=== PATIENT | female | born 2000 | race Caucasian/White ===

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

== ENCOUNTER 2020-05-24 16:27 | Inpatient (IN) | payer OTHER ==
[~2020-05-24] VITALS: Ht 167.6 cm; Wt 60.4 kg
[2020-05-24] MEDS ORDERED: NS 1,000 ML IV ONE (19:15)
[2020-05-24] MEDS ORDERED: ONDANSETRON 4MG/2ML VIAL IV ONE (19:15)
[2020-05-24 19:59] LABS: BASO # 0.1 10^3/uL (0.0-0.2); BASO % 0.5 % (0.0-1.0); EOS # 1.6 10^3/uL (0.0-0.5); EOS % 13.6 % (0.0-3.0); HEMATOCRIT 33.7 % (36.0-47.0); HEMOGLOBIN 10.6 g/dl (12.0-15.5); MEAN CORPUSCULAR HEMOGLOBIN 25.9 pg (27.0-33.0); MEAN CORPUSCULAR HGB CONC 31.5 g/dl (32.0-36.5); MEAN CORPUSCULAR VOLUME 82.4 fl (80.0-96.0); MONO # 1.3 10^3/uL (0.0-0.8); MONO % 10.7 % (2.0-8.0); NEUTROPHILS # 5.9 10^3/uL (1.5-8.5); NEUTROPHILS % 49.7 % (36.0-66.0); PLATELET COUNT, AUTOMATED 514 10^3/uL (150-450); RED BLOOD COUNT 4.09 10^6/uL (4.00-5.40); WHITE BLOOD COUNT 11.9 10^3/uL (4.0-10.0)
[2020-05-24 20:24] LABS: ALBUMIN 2.9 GM/DL (3.2-5.2); BILIRUBIN,DIRECT 0.1 MG/DL (0.0-0.2); BILIRUBIN,TOTAL 0.3 MG/DL (0.2-1.0); TOTAL PROTEIN 6.9 GM/DL (6.4-8.2)
[2020-05-24] MEDS ORDERED: ISOVUE-370 76% 100ML VIAL As Ordered ONE (20:28)
[2020-05-24] MEDS ORDERED: PANTOPRAZOLE 40MG VIAL (C9113 PER 1) IV ONE (20:35)
[2020-05-24] MEDS: DOCUSATE SODIUM 100MG CAPSULE PO SCH ×2 (21:00→23:48)
--- NOTE | 2020-05-24 21:46 | REPVR ---
PROCEDURE INFORMATION: Exam: CT Abdomen And Pelvis With Contrast Exam date and time: 05/24/2020 8:36 PM Age: 19 years old Clinical indication: Abdominal pain; Localized; Left lower quadrant (llq); Additional info: HX colitis /llq pain TECHNIQUE: Imaging protocol: Computed tomography of the abdomen and pelvis with contrast. Radiation optimization: All CT scans at this facility use at least one of these dose optimization techniques: automated exposure control; mA and/or kV adjustment per patient size (includes targeted exams where dose is matched to clinical indication); or iterative reconstruction. Contrast material: ISOVUE 370; Contrast volume: 100 ml; Contrast route: INTRAVENOUS (IV); COMPARISON: No relevant prior studies available. FINDINGS: Lungs: The lung bases are unremarkable. Liver: There are no focal liver lesions. Gallbladder and bile ducts: The gallbladder is unremarkable. Pancreas: The pancreas is normal. Spleen: The spleen is unremarkable. Adrenal glands: The adrenal glands are unremarkable. Kidneys and ureters: The kidneys are unremarkable. Stomach and bowel: There is no evidence of intestinal obstruction. There is diffuse colonic wall thickening and hyperemia particularly in the sigmoid colon. Appendix: No evidence of appendicitis. Intraperitoneal space: There is free fluid in the pelvis. Vasculature: The aorta is unremarkable. Lymph nodes: Unremarkable. No enlarged lymph nodes. Urinary bladder: Unremarkable as visualized. Reproductive: Unremarkable as visualized. Bones/joints: Unremarkable. No acute fracture. Soft tissues: There is mild soft tissue stranding medially within the adipose tissue of both buttocks. IMPRESSION: Findings are consistent with pancolitis most prominent in the sigmoid colon with surrounding pelvic ascites. Electronically signed by: Nathalia Mcleod On 05/24/2020 21:47:11 PM
[2020-05-24] MEDS ORDERED: CIPROFLOXACIN 400 MG in IV 1 EA IV ONE (22:05)
[2020-05-24] MEDS ORDERED: metroNIDAZOLE 500 MG in IV 1 EA IV ONE (22:05)
[2020-05-24] MEDS ORDERED: FLUO40CA PO (22:16)
[2020-05-24] MEDS ORDERED: SETL1TAB PO (22:16)
[2020-05-24] MEDS ORDERED: MOM 30ML SUSPENSION UDC PO PRN (23:20)
[2020-05-24] MEDS ORDERED: MAALOX 30 ML SUSP *UDC PO PRN (23:20)
[2020-05-24] MEDS ORDERED: ACETAMINOPHEN TAB 650MG DOSE (2X325MG) PO PRN (23:20)
[2020-05-25] MEDS ORDERED: MORPHINE 2 MG/ML 1ML VIAL (J2270) IV PRN (00:40)
--- NOTE | 2020-05-25 00:40 | HPEPDOC ---
[facility] Medical History & Physical Date of Admission May 25, 2020 Date of Service: May 25, 2020 History and Physical CHIEF COMPLAINT: abdominal pain, diarrhea HISTORY OF PRESENT ILLNESS: 19 yo F with no significant past medical history presented to [facility] ER with approximately a month long history of blood-tinged diarrhea, abdominal pain and cramping with reduced by mouth intake. Patient states that she was admitted at an outside hospital approximately 1 month ago and diagnosed with colitis upon which she completed antibiotic course of antibiotic treatment was discharged home. Patient states that she sustained a mild improvement in abdominal pain and cramping, but her diarrhea never resolved. Patient states that she lost approximately 10 pounds in the last month. She has has been referred to gastrology with Dr. Spencer in [place], but has not yet followed up for a colonoscopy. CT abdomen at our ER shows findings consistent with pancolitis, most prominent in the sigmoid colon with surrounding pelvic ascites. Patient had a low-grade temperature of 99.5 on arrival. Pulse 84. Estrace 16, blood pressure 118/59, and saturating 98% on room air. WBC 11.9. Hemoglobin 10.6. Platelets 514. AST 10, ALT 15, ALP 57, lipase 27, total bili 0.3. Na 136, potassium 3.5, creatinine 0.8. UA unremarkable. GI panel negative. Patient will be admitted to hospitalist service for the management of colitis, at this stage as yet unspecified inflammatory versus infectious. PAST MEDICAL HISTORY: No significant past medical history SOCIAL HISTORY: Patient denies smoking Patient denies etoh use Patient denies illicit drug use Attends [employer] FAMILY HISTORY: Patient reports a history of autoimmune conditions in her mother and aunt, unspecified. No official history of inflammatory bowel disease ie ulcerative colitis or Cr ohn's disease ALLERGIES: Please see below. REVIEW OF SYSTEMS: A 10 point review of systems was conducted and relevant findings were noted in the HPI. HOME MEDICATIONS: Please see below. PHYSICAL EXAMINATION: VITAL SIGNS: please see below General: NAD, comfortable HEENT: PERRLA, EOMI, sclerae clear Neck: supple, normal ROM, no JVD Respiratory: lungs CTAB, no wheeze, no rales, no crackles CVS: RRR, normal S1, S2, no murmurs Abdo: Diffuse abdominal tenderness, worse in the lower abdomen including left and right quadrants. No organomegaly. No rebound tenderness, no rigidity distress peritonitis. Extremities: no edema, pulses 2+ MSK: no joint deformities, normal ROM Neuro: no focal neuro deficits, moving all 4 extremities, CN2-12 intact. Strength 5/5 in all 4 extremities. No nystagmus. Psych: calm, cooperative, AAO x 3 LABORATORY DATA: See below. IMAGING: CT abdomen and pelvis with IV contrast (05/24/20): Findings are consistent with pancolitis most prominent in the sigmoid colon with surrounding pelvic ascites. MICROBIOLOGY: Please see below. ASSESSMENT: 19-year-old female with a history of recent admission for colitis. One month ago, treated with antibiotics returning with a month-long history of blood-tinged diarrhea, abdominal pain and reduced by mouth intake. PLAN: Pancolitis, primarily in sigmoid, likely infectious vs inflammatory - ongoing process, last admitted 1 month ago, with improvement after abx - diarrhea, tinged with blood persists, as does anorexia and abdominal pain - at this stage it is unclear whether this is an infectious process or an inflammatory process - I suspect that given the relapsing, remitting nature, presence of blood, cramping, persistent diarrhea and weight loss, IBD, particularly ulcerative colitis is a pertinent differential - patient has a referral and appointment pending with GI Dr. Spencer in [place], [place] - will check ESR, fecal calprotectin, lactoferrin - at the same time, there is mild WBC elevation with low grade temps. GI panel negative - will c/w ciprofloxacin and flagyl, but will not give empiric steroids at this time - possible GI consult in am, as service is available - will give maintenance IVF in meantime, slowly advance diet. NPO for now - pain control with IV morphine for breakthrough. Tylenol Intractable diarrhea - check fecal calprotectin, lactoferrin - GI panel negative - IVF Anemia - month long hx of blood tinged diarrhea - check fecal occult blood - check iron level, b12, folate Thrombocytosis - PLT 514, will trend - possibly reactive DVT ppx: SCDs. early ambulation. Vital Signs Vital Signs Date Time Temp Pulse Resp B/P (MAP) Pulse Ox O2 Delivery O2 Flow Rate FiO2 05/24/20 23:49 05/24/20 23:49 99.5 84 16 98 Room Air Laboratory Data Labs 24H Laboratory Tests 2 05/24/20 19:40: Immature Granulocyte % (Auto) 0.5, Neutrophils (%) (Auto) 49.7, Lymphocytes (%) (Auto) 25.0, Monocytes (%) (Auto) 10.7H, Eosinophils (%) (Auto) 13.6H, Basophils (%) (Auto) 0.5, Neutrophils # (Auto) 5.9, Lymphocytes # (Auto) 3.0, Monocytes # (Auto) 1.3H, Eosinophils # (Auto) 1.6H, Basophils # (Auto) 0.1, Nucleated Red Blood Cells % (auto) 0.0, Urine Color JASPAL, Urine Appearance HAZY, Urine pH 6.0, Urine Specific Jackson 1.023, Urine Protein 1+H, Urine Glucose (UA) NEGATIVE, Urine Ketones 1+H, Urine Blood NEGATIVE, Urine Nitrite NEGATIVE, Urine Bilirubin NEGATIVE, Urine Urobilinogen 0.2, Urine Leukocyte Esterase NEGATIVE, Urine WBC (Auto) 3, Urine RBC (Auto) 0, Urine Hyaline Casts (Auto) 0, Urine Bacteria (Auto) 1+H, Urine Squamous Epithelial Cells 2, Urine Mucus (Auto) LARGE, Urine Sperm (Auto) , Total Bilirubin 0.3, Direct Bilirubin 0.1, Aspartate Amino Transf (AST/SGOT) 10, Alanine Aminotransferase (ALT/SGPT) 15, Alkaline Phosphatase 57, Total Protein 6.9, Albumin 2.9L, Albumin/Globulin Ratio 0.7L, Lipase 27L 05/24/20 19:53: POC Glucose (Misc Panel) 84, POC Sodium (Misc Panel) 136, POC Potassium (Misc Panel) 3.5, POC Chloride (Misc Panel) 100, POC Total CO2 (Misc Panel) 23.0, POC Blood Urea Nitrogen (Misc Panel 5L, POC Ionized Calcium (Misc Panel) 4.7, POC Creatinine (Misc Panel) 0.8, POC Hematocrit (Misc Panel) 33.0L 05/24/20 21:55: Coronavirus (COVID-19)(PCR) NEGATIVE CBC/BMP Laboratory Tests 05/24/20 19:40 Microbiology Microbiology 05/24/20 Gastrointestinal Tract Panel (PCR) - Final, Complete Home Medications Scheduled Fluoxetine Hcl (Fluoxetine HCl) 40 Mg Capsule, 40 MG PO QHS Levonorgestrel-Ethin Estradiol (Setlakin 0.15 mg-0.03 mg Tab) 1 Each Tbdspk.3mo, 1 TAB PO DAILY Pantoprazole Sodium (Pantoprazole Sodium) 40 Mg Tablet.dr, 40 MG PO QHS Prednisone (Prednisone) 20 Mg Tablet, 20 MG PO ASDIRECTED 2 tabs daily take along with 1 tab of 10 mg tab. Total 50 mg daily. Prednisone (Prednisone) 10 Mg Tablet, 10 MG PO ASDIRECTED take 1 tab with 2 of 20 mg tabs. Total 50mg daily Allergies Coded Allergies: amoxicillin (Verified Allergy, Unknown, hives, 05/24/20) A-FIB/CHADSVASC A-FIB History Current/History of A-Fib/PAF?: No Current PO Anticoag Therapy: No OLY SPANN MD May 25, 2020 00:40
[2020-05-25 00:45] VITALS: BP 108/58
[2020-05-25] MEDS ORDERED: ONDANSETRON 4MG/2ML VIAL IV PRN (01:10)
[2020-05-25] MEDS: NS 1,000 ML IV SCH ×2 (01:44→08:00)
[2020-05-25] MEDS: FLUoxetine 20 MG CAP PO SCH ×2 (01:44→20:55)
[2020-05-25 07:12] LABS: BASO # 0.1 10^3/uL (0.0-0.2); BASO % 0.6 % (0.0-1.0); EOS # 2.5 10^3/uL (0.0-0.5); HEMATOCRIT 26.5 % (36.0-47.0); LYMPH # 2.2 10^3/uL (1.5-5.0); MEAN CORPUSCULAR HEMOGLOBIN 26.1 pg (27.0-33.0); MEAN CORPUSCULAR HGB CONC 30.9 g/dl (32.0-36.5); MEAN CORPUSCULAR VOLUME 84.4 fl (80.0-96.0); MONO # 1.4 10^3/uL (0.0-0.8); MONO % 11.4 % (2.0-8.0); NEUTROPHILS % 49.4 % (36.0-66.0); RED BLOOD COUNT 3.14 10^6/uL (4.00-5.40); WHITE BLOOD COUNT 12.1 10^3/uL (4.0-10.0)
[2020-05-25 07:17] LABS: EOS % 20.2 % (0.0-3.0); HEMOGLOBIN 8.2 g/dl (12.0-15.5); PLATELET COUNT, AUTOMATED 357 10^3/uL (150-450)
[2020-05-25 07:31] LABS: ERYTHROCYTE SEDIMENTATION RATE 52 mm/hr (0-20)
[2020-05-25 07:43] LABS: ALBUMIN 2.1 GM/DL (3.2-5.2); ALT/SGPT 10 U/L (12-78); BILIRUBIN,TOTAL 0.3 MG/DL (0.2-1.0); BLOOD UREA NITROGEN 4 MG/DL (7-18); CALCIUM LEVEL 7.6 MG/DL (8.5-10.1); CARBON DIOXIDE LEVEL 20 MEQ/L (21-32); CHLORIDE LEVEL 109 MEQ/L (98-107); CREATININE FOR GFR 0.62 MG/DL (0.55-1.30); FERRITIN 13 NG/ML (8-252); GLUCOSE, FASTING 67 MG/DL (70-100); IRON (FE) 23 UG/DL (50-170); MAGNESIUM LEVEL 1.6 MG/DL (1.4-2.0); PERCENT SATURATION 9.9 % (13.2-45.0); POTASSIUM SERUM 3.9 MEQ/L (3.5-5.1); SODIUM LEVEL 140 MEQ/L (136-145); TOTAL IRON BINDING CAPACITY 233 UG/DL (250-450)
[2020-05-25] MEDS: metroNIDAZOLE 500 MG in IV 1 EA IV SCH ×2 (07:57→16:06)
[2020-05-25] MEDS: DOCUSATE SODIUM 100MG CAPSULE PO SCH (08:06)
[2020-05-25 08:30] VITALS: BP 107/56
[2020-05-25] MEDS ORDERED: ENOXAPARIN 40MG/0.4ML SYRINGE (J1650 PER 10MG) SC SCH (09:00)
[2020-05-25] MEDS ORDERED: CIPROFLOXACIN 400 MG in IV 1 EA IV SCH (11:00)
[2020-05-25 11:12] LABS: VITAMIN B12 LEVEL 1882 PG/ML
[2020-05-25] MEDS ORDERED: LIDOCAINE 2% 100MG/5ML SDV (FOR ANES.) As Ordered ONE (14:52)
[2020-05-25] MEDS ORDERED: propofoL 200 MG/20 ML VIAL As Ordered ONE (14:53)
--- NOTE | 2020-05-25 15:28 | ROOR ---
Patient Name: Cesar Pan Procedure Date: 05/25/2020 3:04 PM Date of : 2000 Age: 19 Room: [facility] Gender: Female Note Status: Finalized Procedure: Colonoscopy Indications: Chronic diarrhea, Hematochezia Providers: August Gonzalez MD Referring MD: Nicole REESE DO Requesting Provider: Medicines: Monitored Anesthesia Care Complications: No immediate complications. Procedure: Pre-Anesthesia Assessment: - Prior to the procedure, a History and Physical was performed, and patient medications and allergies were reviewed. The patient is competent. The risks and benefits of the procedure and the sedation options and risks were discussed with the patient. All questions were answered and informed consent was obtained. Patient identification and proposed procedure were verified by the physician, the nurse and the anesthesiologist in the procedure room. Mental Status Examination: normal. Airway Examination: normal oropharyngeal airway and neck mobility. Respiratory Examination: clear to auscultation. CV Examination: normal. Prophylactic Antibiotics: The patient does not require prophylactic antibiotics. Prior Anticoagulants: The patient has taken no previous anticoagulant or antiplatelet agents. ASA Grade Assessment: II - A patient with mild systemic disease. After reviewing the risks and benefits, the patient was deemed in satisfactory condition to undergo the procedure. The anesthesia plan was to use monitored anesthesia care (MAC). Immediately prior to administration of medications, the patient was re-assessed for adequacy to receive sedatives. The heart rate, respiratory rate, oxygen saturations, blood pressure, adequacy of pulmonary ventilation, and response to care were monitored throughout the procedure. The physical status of the patient was re-assessed after the procedure. The Colonoscope was introduced through the anus and advanced to the sigmoid colon for evaluation. This was the intended extent. The colonoscopy was performed without difficulty. The patient tolerated the procedure well. The quality of the bowel preparation was fair. The rectum was photographed. Scope insertion time was 2 minutes. Scope withdrawal time was 4 minutes. The total duration of the procedure was 6 minutes. Findings: The perianal and digital rectal examinations were normal. Inflammation characterized by congestion (edema), granularity, mucus, pseudopolyps, confluent ulcerations and shallow ulcerations was found in a continuous and circumferential pattern from the rectum to the sigmoid colon. This was graded as Johnson Score 3 (severe, with spontaneous bleeding, ulcerations). Biopsies were taken with a cold forceps for histology. Fluid aspiration for Clostridium difficile was performed. Verification of patient identification for the specimen was done by the physician and nurse using the patient's name, date and medical record number. Estimated blood loss was minimal. Impression: - Preparation of the colon was fair. - Inflammatory bowel disease. Inflammation was found from the rectum to the sigmoid colon. This was graded as Johnson Score 3 (severe disease). Biopsied. Fluid aspiration performed. Recommendation: - Patient has a contact number available for emergencies. The signs and symptoms of potential delayed complications were discussed with the patient. Return to normal activities tomorrow. Written discharge instructions were provided to the patient. - Advance diet as tolerated. - Continue present medications. - Use prednisone 50 mg PO once a day as per the script instructions. Dose to be tapered gradually as per script. - Repeat colonoscopy in 6 months to check healing. - Return to GI clinic 1 - 2 weeks. Please call GI clinic @ [phone] for apppointment date and time. - Return to primary care physician. Procedure Code(s): --- Professional --- 96199, 52, Colonoscopy, flexible; with biopsy, single or multiple Diagnosis Code(s): --- Professional --- K52.3, Indeterminate colitis K52.9, Noninfective gastroenteritis and colitis, unspecified K92.1, Melena (includes Hematochezia) CPT copyright 2019 [employer]. All rights reserved. The codes documented in this report are preliminary and upon lieutenant fire fighter review may be revised to meet current compliance requirements. August Gonzalez MD August Gonzalez MD 05/25/2020 3:28:58 PM Electronically signed by August Gonzalez MD Number of Addenda: 0 Note Initiated On: 05/25/2020 3:04 PM Estimated Blood Loss: Estimated blood loss was minimal.
--- NOTE | 2020-05-25 15:58 | CR.PDOC ---
General Date of Consultation: May 25, 2020 Referring Provider: NAMRATA BURCH MD Attending Physician: CAMPBELL BAIRD MD Consultation Referring physician / PCP : Dr. Namrata Burch Reason for consult: Bloody diarrhea HPI: 19 year old female patient with no significant past medical history, was admitted to [facility] for rectal bleeding and diarrhea with abdominal cramping pain. Patient reports she started having symptoms around a month ago when she had ER visit (outside [facility]), where she was treated with antibiotics, which partly improved the symptoms but continued to have bloody diarrhea and abdominal cramping. Patient does not remember having any positive stool test for infection in past. She is not taking any medications at home and noticed few episodes of profuse rectal bleeding intermittently. Patient was scheduled to see GI in [place] in a month time but due to persistent and worsening symptoms, she came to [facility] ER. Patient reports her diarrhea never resolved but the amount of blood in stools is much less from before. She reports not able to eat well and reports weight loss of 10 pounds. Patient denies any recent travel, sick contacts or fever but does reports subjective chills. Pertinent negative GI symptoms: Patient denies nausea, vomiting, hematemesis, melena. Review of Systems: GI: as stated above CVS: No chest pain, No palpitations, No leg swelling RS: No Shortness of breath, No Wheezing SILK WEAVER: No loss of consciousness, No focal motor weakness., Hematology: No easy bruising, No gum bleeding, Musculoskeletal: No joint pain, ambulating well. : No blood in urine, No burning sensation of the urine ENT: No ear discharge/ pain, No dysphagia. Eyes: No photophobia. Skin: No rash Home medications: reviewed. No Plavix and No anticoagulants Medical h/o: As above. Surgical h/o: None on abdomen. Social h/o: Denies Alcohol, smoking, IVDA/ drugs. Family h/o of GI cancers - None Prior Endoscopies: None in [facility]. Prior GI evaluation: None in [facility] Exam: Vitals: reviewed General: Alert and oriented x 3, not in acute distress HEENT: No pallor, no icterus. Normal oropharynx, NO cervical lymphadenopathy. Chest: symmetric with bilateral air entry, CVS: S1, S2 heard, Abdomen: non-distended, soft, non-tender, no rigidity or guarding, no palpable masses, normal bowel sounds heard. Rectal exam: Patient refused / Deferred at this time in view of scheduled colonoscopy. Extremities: pulses palpable, no pedal edema, SILK WEAVER: no focal motor or sensory deficits. Moves all extremities Skin: no rash. Labs: reviewed. Imaging: none / reviewed. Stool panel negative for C. difficile. Impression: -- Chronic diarrhea, with blood in stools, moderate to large amounts, with abd ominal cramping pain, CT abdomen showing solis colitis and stool testing negative for infection, recent antibiotic use ( outside [facility]), -- DDx Inflammatory bowel disease vs Infectious colitis vs less likely rectal ulcer vs diverticular disease. Recommendations: -- Patient educated about the prior test results and all questions answered. -- Will continue with IV hydration and correction of the electrolytes. -- Continue on the current antibiotics for now. -- Will schedule for flexible sigmoidoscopy for further evaluation. Patient educated about the procedure, indications, risks (including but not limited to bleeding, infection, perforation, anesthesia risks, including ), benefits and all alternatives including conservative measures without intervention. Patient verbalized understanding and consented for the procedure. -- Please follow operative note for post procedure recommendations. -- Plan of care educated to patient and patient verbalized understanding and agreed. All questions answered. -- Recommendations communicated to primary team. Patient to follow with PCP upon discharge for routine medical care. Vital Signs/I&O Vital Signs Date Time Temp Pulse Resp B/P (MAP) Pulse Ox O2 Delivery O2 Flow Rate FiO2 05/25/20 08:30 98.6 84 18 107/56 (73) 99 Room Air I&O- Last 24 Hours up to 6 AM 05/25/20 06:00 Intake Total 1855 ml Output Total 100 ml Balance 1755 ml Laboratory Data Labs 24H Laboratory Tests 2 05/24/20 19:40: Immature Granulocyte % (Auto) 0.5, Neutrophils (%) (Auto) 49.7, Lymphocytes (%) (Auto) 25.0, Monocytes (%) (Auto) 10.7H, Eosinophils (%) (Auto) 13.6H, Basophils (%) (Auto) 0.5, Neutrophils # (Auto) 5.9, Lymphocytes # (Auto) 3.0, Monocytes # (Auto) 1.3H, Eosinophils # (Auto) 1.6H, Basophils # (Auto) 0.1, Nucleated Red Blood Cells % (auto) 0.0, Urine Color JASPAL, Urine Appearance HAZY, Urine pH 6.0, Urine Specific Bradshaw 1.023, Urine Protein 1+H, Urine Glucose (UA) NEGATIVE, Urine Ketones 1+H, Urine Blood NEGATIVE, Urine Nitrite NEGATIVE, Urine Bilirubin NEGATIVE, Urine Urobilinogen 0.2, Urine Leukocyte Esterase NEGATIVE, Urine WBC (Auto) 3, Urine RBC (Auto) 0, Urine Hyaline Casts (Auto) 0, Urine Bacteria (Auto) 1+H, Urine Squamous Epithelial Cells 2, Urine Mucus (Auto) LARGE, Urine Sperm (Auto) , Total Bilirubin 0.3, Direct Bilirubin 0.1, Aspartate Amino Transf (AST/SGOT) 10, Alanine Aminotransferase (ALT/SGPT) 15, Alkaline Phosphatase 57, Total Protein 6.9, Albumin 2.9L, Albumin/Globulin Ratio 0.7L, Lipase 27L 05/24/20 19:51: 05/24/20 19:53: POC Glucose (Misc Panel) 84, POC Sodium (Misc Panel) 136, POC Potassium (Misc Panel) 3.5, POC Chloride (Misc Panel) 100, POC Total CO2 (Misc Panel) 23.0, POC Blood Urea Nitrogen (Misc Panel 5L, POC Ionized Calcium (Misc Panel) 4.7, POC Creatinine (Misc Panel) 0.8, POC Hematocrit (Misc Panel) 33.0L 05/24/20 21:55: Coronavirus (COVID-19)(PCR) NEGATIVE 05/25/20 06:57: Immature Granulocyte % (Auto) 0.4, Neutrophils (%) (Auto) 49.4, Lymphocytes (%) (Auto) 18.0L, Monocytes (%) (Auto) 11.4H, Eosinophils (%) (Auto) 20.2H, Basophils (%) (Auto) 0.6, Neutrophils # (Auto) 6.0, Lymphocytes # (Auto) 2.2, Monocytes # (Auto) 1.4H, Eosinophils # (Auto) 2.5H, Basophils # (Auto) 0.1, Nucleated Red Blood Cells % (auto) 0.0, Erythrocyte Sedimentation Rate 52H, Anion Gap 11, Calcium Level 7.6L, Magnesium Level 1.6, Iron Level 23L, Total Iron Binding Capacity 233L, Transferrin % Saturation 9.9L, Ferritin 13, Total Bilirubin 0.3, Aspartate Amino Transf (AST/SGOT) 6L, Alanine Aminotransferase (ALT/SGPT) 10L, Alkaline Phosphatase 43L, Total Protein 5.0#L, Albumin 2.1#L, Albumin/Globulin Ratio 0.7L, Vitamin B12 Level 1882, Folate 18.0 CBC/BMP Laboratory Tests 05/24/20 19:40 05/25/20 06:57 Microbiology Microbiology 05/24/20 Stool Lactoferrin - Final, Complete 05/24/20 Gastrointestinal Tract Panel (PCR) - Final, Complete Allergies Coded Allergies: amoxicillin (Verified Allergy, Unknown, hives, 05/24/20) Home Medications Scheduled Fluoxetine Hcl (Fluoxetine HCl) 40 Mg Capsule, 40 MG PO QHS, (Reported) Levonorgestrel-Ethin Estradiol (Setlakin 0.15 mg-0.03 mg Tab) 1 Each Tbdspk.3mo, 1 TAB PO DAILY, (Reported) CAMPBELL BAIRD MD May 25, 2020 15:59
[2020-05-25 16:00] VITALS: BP 99/55
[2020-05-25] MEDS ORDERED: predniSONE 50 MG TAB PO ONE (17:00)
--- NOTE | 2020-05-25 17:10 | IPNPDOC ---
Subjective Date Seen The patient was seen on 05/25/20. Subjective Chief Complaint/HPI Continues to have abdominal pain and bloody diarrhea. Went for colonoscopy today . Objective Physical Examination General Exam: Positive: Alert, Cooperative, No Acute Distress Eye Exam: Positive: PERRLA, Conjunctiva & lids normal, EOMI; Negative: Sclera icteric ENT Exam: Positive: Atraumatic, Mucous membr. moist/pink, Pharynx Normal Neck Exam: Positive: Supple; Negative: JVD, thyromegaly Chest Exam: Positive: Clear to auscultation, Normal air movement Heart Exam: Positive: Tachycardic, Regular Rhythm, Normal S1, Normal S2; Negative: Murmurs, Rubs Abdomen Exam: Positive: BS Hyperactive, Soft, Tenderness (in the LLQ with reboud tenderness) Extremity Exam: Negative: Clubbing, Cyanosis, Edema Assessment /Plan Assessment 19 yo F with no significant past medical history presented to [facility] ER with appr oximately a month long history of blood-tinged diarrhea, abdominal pain and cramping with reduced by mouth intake. Patient states that she was admitted at an outside hospital approximately 1 month ago and diagnosed with colitis upon which she completed antibiotic course of antibiotic treatment was discharged home. Patient states that she sustained a mild improvement in abdominal pain and cramping, but her diarrhea never resolved. Patient states that she lost approximately 10 pounds in the last month. She has has been referred to gastrology with Dr. Spencer in [place], but has not yet followed up for a colonoscopy. CT abdomen at in our ER shows findings consistent with pancolitis, most prominent in the sigmoid colon with surrounding pelvic ascites. Inflammatory bowel disease Colonoscopy 05/25 showed Inflammation characterized by congestion (edema), granularity, mucus, pseudopolyps, confluent ulcerations and shallow ulcerations was found in a continuous and circumferential pattern from the rectum to the sigmoid colon. This was graded as Johnson Score 3 (severe, with spontaneous bleeding, ulcerations). Biopsies were taken with a cold forceps for histology. Fluid aspiration for Clostridium difficile was performed. GI panel neg antibiotics stopped started on prednisone 50 mg daily pantoprazole. Clear liquids then advance as tolerated Anemia/ iron deficiency from GIB monitor HH and transfuse if hb< 7.0 Plan/VTE VTE Prophylaxis Ordered?: Yes VS, I&O, 24H, Fishbone Vital Signs/I&O Vital Signs Date Time Temp Pulse Resp B/P (MAP) Pulse Ox O2 Delivery O2 Flow Rate FiO2 05/25/20 16:00 98.2 80 16 99/55 (70) 99 Room Air I&O- Last 24 Hours up to 6 AM 05/25/20 06:00 Intake Total 1855 ml Output Total 100 ml Balance 1755 ml Laboratory Data 24H LABS Laboratory Tests 2 05/24/20 19:40: Immature Granulocyte % (Auto) 0.5, Neutrophils (%) (Auto) 49.7, Lymphocytes (%) (Auto) 25.0, Monocytes (%) (Auto) 10.7H, Eosinophils (%) (Auto) 13.6H, Basophils (%) (Auto) 0.5, Neutrophils # (Auto) 5.9, Lymphocytes # (Auto) 3.0, Monocytes # (Auto) 1.3H, Eosinophils # (Auto) 1.6H, Basophils # (Auto) 0.1, Nucleated Red Blood Cells % (auto) 0.0, Urine Color JASPAL, Urine Appearance HAZY, Urine pH 6.0, Urine Specific [place] 1.023, Urine Protein 1+H, Urine Glucose (UA) NEGATIVE, Urine Ketones 1+H, Urine Blood NEGATIVE, Urine Nitrite NEGATIVE, Urine Bilirubin NEGATIVE, Urine Urobilinogen 0.2, Urine Leukocyte Esterase NEGATIVE, Urine WBC (Auto) 3, Urine RBC (Auto) 0, Urine Hyaline Casts (Auto) 0, Urine Bacteria (Auto) 1+H, Urine Squamous Epithelial Cells 2, Urine Mucus (Auto) LARGE, Urine Sperm (Auto) , Total Bilirubin 0.3, Direct Bilirubin 0.1, Aspartate Amino Transf (AST/SGOT) 10, Alanine Aminotransferase (ALT/SGPT) 15, Alkaline Phosphatase 57, Total Protein 6.9, Albumin 2.9L, Albumin/Globulin Ratio 0.7L, Lipase 27L 05/24/20 19:51: 05/24/20 19:53: POC Glucose (Misc Panel) 84, POC Sodium (Misc Panel) 136, POC Potassium (Misc Panel) 3.5, POC Chloride (Misc Panel) 100, POC Total CO2 (Misc Panel) 23.0, POC Blood Urea Nitrogen (Misc Panel 5L, POC Ionized Calcium (Misc Panel) 4.7, POC Creatinine (Misc Panel) 0.8, POC Hematocrit (Misc Panel) 33.0L 4/5/21 21:55: Coronavirus (COVID-19)(PCR) NEGATIVE 05/25/20 06:57: Immature Granulocyte % (Auto) 0.4, Neutrophils (%) (Auto) 49.4, Lymphocytes (%) (Auto) 18.0L, Monocytes (%) (Auto) 11.4H, Eosinophils (%) (Auto) 20.2H, Basophils (%) (Auto) 0.6, Neutrophils # (Auto) 6.0, Lymphocytes # (Auto) 2.2, Monocytes # (Auto) 1.4H, Eosinophils # (Auto) 2.5H, Basophils # (Auto) 0.1, Nucleated Red Blood Cells % (auto) 0.0, Erythrocyte Sedimentation Rate 52H, Anion Gap 11, Calcium Level 7.6L, Magnesium Level 1.6, Iron Level 23L, Total Iron Binding Capacity 233L, Transferrin % Saturation 9.9L, Ferritin 13, Total Bilirubin 0.3, Aspartate Amino Transf (AST/SGOT) 6L, Alanine Aminotransferase (ALT/SGPT) 10L, Alkaline Phosphatase 43L, Total Protein 5.0#L, Albumin 2.1#L, Albumin/Globulin Ratio 0.7L, Vitamin B12 Level 1882, Folate 18.0 CBC/BMP Laboratory Tests 05/24/20 19:40 05/25/20 06:57 Microbiology Microbiology 05/24/20 Stool Lactoferrin - Final, Complete 05/24/20 Gastrointestinal Tract Panel (PCR) - Final, Complete HARMONY CANDELARIO MD May 25, 2020 17:10
[2020-05-25] MEDS ORDERED: LEVONORGESTREL ETHIN ESTRADIOL PO SCH (21:00)
[2020-05-25] MEDS ORDERED: PANTOPRAZOLE 40MG TAB (PROTONIX) PO SCH (21:00)
[2020-05-26] VITALS: BP 108/67
[2020-05-26 08:01] VITALS: BP 107/61
[2020-05-26 08:23] LABS: BASO % 0.1 % (0.0-1.0); EOS % 0.1 % (0.0-3.0); HEMATOCRIT 26.5 % (36.0-47.0); HEMOGLOBIN 8.4 g/dl (12.0-15.5); LYMPH # 0.8 10^3/uL (1.5-5.0); LYMPH % 11.3 % (24.0-44.0); MEAN CORPUSCULAR HEMOGLOBIN 26.5 pg (27.0-33.0); MEAN CORPUSCULAR HGB CONC 31.7 g/dl (32.0-36.5); MEAN CORPUSCULAR VOLUME 83.6 fl (80.0-96.0); MONO # 0.7 10^3/uL (0.0-0.8); MONO % 10.3 % (2.0-8.0); NEUTROPHILS # 5.6 10^3/uL (1.5-8.5); NEUTROPHILS % 77.5 % (36.0-66.0); PLATELET COUNT, AUTOMATED 370 10^3/uL (150-450); RED BLOOD COUNT 3.17 10^6/uL (4.00-5.40); WHITE BLOOD COUNT 7.2 10^3/uL (4.0-10.0)
[2020-05-26 08:41] LABS: ALBUMIN 2.3 GM/DL (3.2-5.2); ALT/SGPT 11 U/L (12-78); BILIRUBIN,TOTAL 0.2 MG/DL (0.2-1.0); BLOOD UREA NITROGEN 2 MG/DL (7-18); CALCIUM LEVEL 8.3 MG/DL (8.5-10.1); CARBON DIOXIDE LEVEL 23 MEQ/L (21-32); CHLORIDE LEVEL 111 MEQ/L (98-107); CREATININE FOR GFR 0.51 MG/DL (0.55-1.30); GLUCOSE, FASTING 119 MG/DL (70-100); MAGNESIUM LEVEL 1.9 MG/DL (1.4-2.0); POTASSIUM SERUM 4.3 MEQ/L (3.5-5.1); SODIUM LEVEL 141 MEQ/L (136-145); TOTAL PROTEIN 5.6 GM/DL (6.4-8.2)
[2020-05-26] MEDS ORDERED: predniSONE 50 MG TAB PO SCH (09:00)
[2020-05-26 09:26] LABS: CLOSTRIDIUM DIFFICILE PCR NEGATIVE (NEGATIVE)
[2020-05-26] MEDS ORDERED: PRED20TA PO (11:41)
[2020-05-26] MEDS ORDERED: PRED10TA2 PO (11:41)
[2020-05-26] MEDS ORDERED: PANT40TA29 PO (11:41)
--- NOTE | 2020-05-26 18:42 | DS.PDOC ---
Discharge Summary General Date of Admission May 24, 2020 at 23:19 Date of Discharge 05/26/20 Discharge Summary PROCEDURES PERFORMED DURING STAY: Flexible Sigmoidoscopy: The perianal and digital rectal examinations were normal. Inflammation characterized by congestion (edema), granularity, mucus, pseudopolyps, confluent ulcerations and shallow ulcerations was found in a continuous and circumferential pattern from the rectum to the sigmoid colon. This was graded as Johnson Score 3 (severe, with spontaneous bleeding, ulcerations). Biopsies were taken with a cold forceps for histology. Fluid aspiration for Clostridium difficile was performed Impression: - Preparation of the colon was fair. - Inflammatory bowel disease. Inflammation was found from the rectum to the sigmoid colon. This was graded as Johnson Score 3 (severe disease). Biopsied. Fluid aspiration performed. DISCHARGE DIAGNOSES: Inflammatory bowel disease likely ulcerative colitis. Acute blood loss anemia from GIB COMPLICATIONS/CHIEF COMPLAINT: Dehydration,Pancolitis. HOSPITAL COURSE: 19 yo F with no significant past medical history presented to [facility] ER with approximately a month long history of blood-tinged diarrhea, abdominal pain and cramping with reduced by mouth intake. Patient states that s he was admitted at an outside hospital approximately 1 month ago and diagnosed with colitis upon which she completed antibiotic course of antibiotic treatment was discharged home. Patient states that she sustained a mild improvement in abdominal pain and cramping, but her diarrhea never resolved. Patient states that she lost approximately 10 pounds in the last month. She has has been referred to gastrology with Dr. Spencer in [place], but has not yet followed up for a colonoscopy. CT abdomen at in our ER shows findings consistent with pancolitis, most prominent in the sigmoid colon with surrounding pelvic ascites. Inflammatory bowel disease Flex Sigmoidoscopy 05/25 showed Inflammation characterized by congestion (edema), granularity, mucus, pseudopolyps, confluent ulcerations and shallow ulcerations was found in a continuous and circumferential pattern from the rectum to the sigmoid colon. This was graded as Johnson Score 3 (severe, with spontaneous bleeding, ulcerations). Biopsies were taken with a cold forceps for histology. Fluid aspiration for Clostridium difficile was performed. GI panel neg antibiotics stopped, C diff from colonic aspirate negative. started on prednisone 50 mg daily. Plan to continue for 2 to 3 weeks then start slow taper @ 10 mg per week. pantoprazole. Low residue diet. Follow up with Dr Gonzalez in 2 weeks Anemia/ iron deficiency from GIB Hb around 8.0 to 8.5 DISCHARGE MEDICATIONS: Please see below. ALLERGIES: Please see below. PHYSICAL EXAMINATION ON DISCHARGE: VITAL SIGNS: Please see below. General Exam: Positive: Alert, Cooperative, No Acute Distress Eye Exam: Positive: PERRLA, Conjunctiva & lids normal, EOMI; Negative: Sclera icteric ENT Exam: Positive: Atraumatic, Mucous membr. moist/pale, Pharynx Normal Neck Exam: Positive: Supple; Negative: JVD, thyromegaly Chest Exam: Positive: Clear to auscultation, Normal air movement Heart Exam: Positive: Tachycardic, Regular Rhythm, Normal S1, Normal S2; Negative: Murmurs, Rubs Abdomen Exam: Positive: BS Hyperactive, Soft, Tenderness in the LLQ no rebound or guarding Extremity Exam: Negative: Clubbing, Cyanosis, Edema LABORATORY DATA: Please see below. IMAGING: CT abd and pelvis with contrast: FINDINGS: Lungs: The lung bases are unremarkable. Liver: There are no focal liver lesions. Gallbladder and bile ducts: The gallbladder is unremarkable. Pancreas: The pancreas is normal. Spleen: The spleen is unremarkable. Adrenal glands: The adrenal glands are unremarkable. Kidneys and ureters: The kidneys are unremarkable. Stomach and bowel: There is no evidence of intestinal obstruction. There is diffuse colonic wall thickening and hyperemia particularly in the sigmoid colon. Appendix: No evidence of appendicitis. Intraperitoneal space: There is free fluid in the pelvis. Vasculature: The aorta is unremarkable. Lymph nodes: Unremarkable. No enlarged lymph nodes. Urinary bladder: Unremarkable as visualized. Reproductive: Unremarkable as visualized. Bones/joints: Unremarkable. No acute fracture. Soft tissues: There is mild soft tissue stranding medially within the adipose tissue of both buttocks. IMPRESSION: Findings are consistent with pancolitis most prominent in the sigmoid colon with surrounding pelvic ascites. ACTIVITY: [As tolerated]. DIET: Low residue diet DISPOSITION: 01 Home, Self-Care. DISCHARGE INSTRUCTIONS: Dr Gonzalez in 2 weeks ITEMS TO FOLLOWUP ON ON OUTPATIENT: Biopsy results from sigmoidoscopy DISCHARGE CONDITION: [Stable]. TIME SPENT ON DISCHARGE: 35 minutes. Vital Signs/I&Os Vital Signs Date Time Temp Pulse Resp B/P (MAP) Pulse Ox O2 Delivery O2 Flow Rate FiO2 05/26/20 08:01 97.8 68 16 107/61 (76) 98 05/26/20 00:00 Room Air I&O- Last 24 Hours up to 6 AM 05/26/20 07:00 Intake Total 2400 ml Output Total 760 ml Balance 1640 ml Laboratory Data Labs 24H Laboratory Tests 2 05/26/20 07:44: Immature Granulocyte % (Auto) 0.7, Neutrophils (%) (Auto) 77.5H, Lymphocytes (%) (Auto) 11.3L, Monocytes (%) (Auto) 10.3H, Eosinophils (%) (Auto) 0.1, Basophils (%) (Auto) 0.1, Neutrophils # (Auto) 5.6, Lymphocytes # (Auto) 0.8L, Monocytes # (Auto) 0.7, Eosinophils # (Auto) 0.0, Basophils # (Auto) 0.0, Nucleated Red Blood Cells % (auto) 0.0, Anion Gap 7L, Calcium Level 8.3L, Magnesium Level 1.9, Total Bilirubin 0.2, Aspartate Amino Transf (AST/SGOT) 5L, Alanine Aminotransferase (ALT/SGPT) 11L, Alkaline Phosphatase 46, Total Protein 5.6L, Albumin 2.3L, Albumin/Globulin Ratio 0.7L CBC/BMP Laboratory Tests 05/26/20 07:44 Microbiology Microbiology 05/24/20 Stool Lactoferrin - Final, Complete 05/24/20 Gastrointestinal Tract Panel (PCR) - Final, Complete Discharge Medications Scheduled Fluoxetine Hcl (Fluoxetine HCl) 40 Mg Capsule, 40 MG PO QHS, (Reported) Levonorgestrel-Ethin Estradiol (Setlakin 0.15 mg-0.03 mg Tab) 1 Each Tbdspk.3mo, 1 TAB PO DAILY, (Reported) Pantoprazole Sodium (Pantoprazole Sodium) 40 Mg Tablet.dr, 40 MG PO QHS Prednisone (Prednisone) 20 Mg Tablet, 20 MG PO ASDIRECTED 2 tabs daily take along with 1 tab of 10 mg tab. Total 50 mg daily. Prednisone (Prednisone) 10 Mg Tablet, 10 MG PO ASDIRECTED take 1 tab with 2 of 20 mg tabs. Total 50mg daily Allergies Coded Allergies: amoxicillin (Verified Allergy, Unknown, hives, 05/24/20) HARMONY CANDELARIO MD May 26, 2020 18:42
== END 2020-05-26 12:45 | disposition home or self-care (01) | DRG 386 ==
LOC: M ED 16:27 → M ED INP 23:19 → M PED 05-25 00:34
PROVIDERS: ADMIT Family Medicine; ATTEND Internal Medicine Nephrology
PROC: 0DBN8ZX Excision of Sigmoid Colon, Via Natural or Artificial Opening Endoscopic, Diagnostic (ICD-10-PCS; principal; 2020-05-25 13:30)
DX: K51.911 Ulcerative colitis, unspecified with rectal bleeding (principal); D62 Acute posthemorrhagic anemia; E86.0 Dehydration; Z79.899 Other long term (current) drug therapy; Z88.0 Allergy status to penicillin

== ENCOUNTER → 2020-07-30 | Outpatient (CLI) | payer OTHER ==
[~2020-07-30] MED LIST: FLUO40CA PO; PANT40TA29 PO; PRED10TA2 PO; PRED20TA PO; SETL1TAB PO
[2020-07-30 14:48] LABS: BASO % 0.4 % (0.0-1.0); EOS # 0.1 10^3/uL (0.0-0.5); HEMOGLOBIN 11.6 g/dl (12.0-15.5); LYMPH # 2.8 10^3/uL (1.5-5.0); LYMPH % 25.6 % (24.0-44.0); MEAN CORPUSCULAR HEMOGLOBIN 24.1 pg (27.0-33.0); MEAN CORPUSCULAR HGB CONC 29.7 g/dl (32.0-36.5); MEAN CORPUSCULAR VOLUME 80.9 fl (80.0-96.0); MONO # 0.7 10^3/uL (0.0-0.8); MONO % 6.2 % (2.0-8.0); NEUTROPHILS % 64.2 % (36.0-66.0); PLATELET COUNT, AUTOMATED 399 10^3/uL (150-450); RED BLOOD COUNT 4.82 10^6/uL (4.00-5.40)
[2020-07-30 15:14] LABS: PERCENT SATURATION 37.4 % (13.2-45.0)
== END ==
LOC: M LAB 13:45
PROVIDERS: ATTEND Family Medicine
DX: D50.9 Iron deficiency anemia, unspecified (principal)

== ENCOUNTER → 2020-09-30 | Outpatient (CLI) | payer OTHER ==
[2020-09-30 13:46] LABS: BASO # 0.1 10^3/uL (0.0-0.2); BASO % 0.5 % (0.0-1.0); EOS # 1.3 10^3/uL (0.0-0.5); EOS % 14.3 % (0.0-3.0); HEMATOCRIT 32.9 % (36.0-47.0); HEMOGLOBIN 10.1 g/dl (12.0-15.5); LYMPH # 2.7 10^3/uL (1.5-5.0); LYMPH % 28.3 % (24.0-44.0); MEAN CORPUSCULAR HEMOGLOBIN 24.6 pg (27.0-33.0); MEAN CORPUSCULAR HGB CONC 30.7 g/dl (32.0-36.5); MONO # 0.7 10^3/uL (0.0-0.8); MONO % 7.4 % (2.0-8.0); NEUTROPHILS # 4.6 10^3/uL (1.5-8.5); NEUTROPHILS % 49.3 % (36.0-66.0); PLATELET COUNT, AUTOMATED 348 10^3/uL (150-450); RED BLOOD COUNT 4.11 10^6/uL (4.00-5.40); WHITE BLOOD COUNT 9.4 10^3/uL (4.0-10.0)
[2020-09-30 14:14] LABS: ALBUMIN 3.2 GM/DL (3.2-5.2); ALT/SGPT 18 U/L (12-78); BILIRUBIN,TOTAL 0.2 MG/DL (0.2-1.0); BLOOD UREA NITROGEN 11 MG/DL (7-18); C REACTIVE PROTEIN QUANTITATIV 1.33 MG/DL (0.00-0.30); CALCIUM LEVEL 8.6 MG/DL (8.5-10.1); CARBON DIOXIDE LEVEL 26 MEQ/L (21-32); CHLORIDE LEVEL 109 MEQ/L (98-107); CREATININE FOR GFR 0.69 MG/DL (0.55-1.30); GLUCOSE, FASTING 82 MG/DL (70-100); IRON (FE) 32 UG/DL (50-170); PERCENT SATURATION 6.6 % (13.2-45.0); POTASSIUM SERUM 4.2 MEQ/L (3.5-5.1); SODIUM LEVEL 139 MEQ/L (136-145); TOTAL IRON BINDING CAPACITY 483 UG/DL (250-450); TOTAL PROTEIN 6.9 GM/DL (6.4-8.2)
[2020-09-30 14:22] LABS: ERYTHROCYTE SEDIMENTATION RATE 45 mm/hr (0-20)
== END ==
LOC: M LAB 12:51
PROVIDERS: ATTEND Family Medicine
DX: D50.9 Iron deficiency anemia, unspecified (principal); K52.3 Indeterminate colitis

== ENCOUNTER 2020-10-22 22:47 | Emergency (ER) | payer OTHER ==
[~2020-10-22] VITALS: Ht 167.6 cm; Wt 66.3 kg
[2020-10-22 22:52] VITALS: BP 126/66
== END 2020-10-23 02:30 | disposition left against medical advice (07) ==
LOC: M ED 22:47
DX: Z53.21 Procedure and treatment not carried out due to patient leaving prior to being seen by health care provider (principal)

== ENCOUNTER → 2020-12-06 | Outpatient (REF) | payer OTHER | LOC: M LAB REF 17:03 | PROVIDERS: ATTEND Physician Assistant | DX: J06.9 Acute upper respiratory infection, unspecified (principal) ==

== ENCOUNTER → 2021-02-04 | Outpatient (REF) | payer OTHER ==
[2021-02-04 22:14] LABS: GC DNA AMPLIFICATION NEGATIVE (NEGATIVE)
== END ==
LOC: M WUC 19:42
PROVIDERS: ATTEND Physician Assistant
DX: R30.0 Dysuria (principal)

== ENCOUNTER → 2021-06-21 | Outpatient (REF) | payer OTHER | LOC: M LAB REF 20:36 | PROVIDERS: ATTEND Physician Assistant | DX: R30.0 Dysuria (principal) ==

== ENCOUNTER → 2021-10-13 | Outpatient (REF) | payer OTHER ==
[2021-10-13 18:56] LABS: GC DNA AMPLIFICATION NEGATIVE (NEGATIVE)
== END ==
LOC: M LAB REF 16:55
PROVIDERS: ATTEND Family Medicine
DX: R39.15 Urgency of urination (principal)

== ENCOUNTER → 2021-11-02 | Outpatient (REF) | payer OTHER ==
[2021-11-02 19:33] LABS: APPEARANCE, URINE MANUAL CLEAR (CLEAR); COLOR, URINE MANUAL YELLOW (YELLOW)
[2021-11-02 19:35] LABS: BILIRUBIN, URINE MANUAL NEGATIVE (NEGATIVE); BLOOD URINE MANUAL POSITIVE (NEGATIVE); GLUCOSE, URINE (UA) MANUAL NEGATIVE (NEGATIVE); KETONE, URINE MANUAL NEGATIVE (NEGATIVE); LEUKOCYTE ESTERASE, URINE MAN NEGATIVE (NEGATIVE); NITRITE, URINE MANUAL NEGATIVE (NEGATIVE); PROTEIN, URINE MANUAL NEGATIVE (NEGATIVE); UROBILINOGEN, URINE MANUAL NORMAL (NORMAL)
[2021-11-02 19:55] LABS: BACTERIA, URINE SMALL AMOUNT; HYALINE CAST, URINE NONE SEEN /lpf (0-1); MUCUS, URINE SMALL AMOUNT (NEGATIVE); SQUAMOUS EPITHELIAL CELL URINE SMALL AMOUNT /hpf (SMALL AMT)
== END ==
LOC: M LAB REF 18:56
PROVIDERS: ATTEND Nurse Practitioner Adult Health
DX: R30.0 Dysuria (principal)

== ENCOUNTER → 2022-11-06 | Outpatient (REF) | payer OTHER ==
[2022-11-06 23:07] LABS: APPEARANCE, URINE CLEAR (CLEAR); BACTERIA, URINE AUTO 1+ (NEGATIVE); BILIRUBIN, URINE AUTO NEGATIVE (NEGATIVE); BLOOD, URINE BLOOD 2+ (NEGATIVE); COLOR, URINE YELLOW (YELLOW); GLUCOSE, URINE (UA) AUTO NEGATIVE (NEGATIVE); KETONE, URINE AUTO NEGATIVE (NEGATIVE); LEUKOCYTE ESTERASE, URINE AUTO 2+ (NEGATIVE); NITRITE, URINE AUTO NEGATIVE (NEGATIVE); PROTEIN, URINE AUTO NEGATIVE (NEGATIVE); RBC, URINE AUTO 1 /HPF (0-3); SPECIFIC GRAVITY URINE AUTO 1.012 (1.002-1.035); SQUAMOUS EPITHELIAL CELL UR AU 1 /HPF (0-6); UROBILINOGEN, URINE AUTO 0.2 mg/dL (0.0-2.0); WBC, URINE AUTO 6 /HPF (0-3)
[2022-11-07 15:40] LABS: GC DNA AMPLIFICATION NEGATIVE (NEGATIVE)
== END ==
LOC: M LAB REF 22:26
PROVIDERS: ATTEND Physician Assistant Medical
DX: N39.0 Urinary tract infection, site not specified (principal); Z20.2 Contact with and (suspected) exposure to infections with a predominantly sexual mode of transmission

== ENCOUNTER → 2022-11-21 | Outpatient (REF) | payer OTHER ==
[2022-11-21 21:41] LABS: APPEARANCE, URINE CLEAR (CLEAR); BACTERIA, URINE AUTO NEGATIVE (NEGATIVE); BILIRUBIN, URINE AUTO NEGATIVE (NEGATIVE); BLOOD, URINE BLOOD NEGATIVE (NEGATIVE); COLOR, URINE YELLOW (YELLOW); GLUCOSE, URINE (UA) AUTO NEGATIVE (NEGATIVE); KETONE, URINE AUTO NEGATIVE (NEGATIVE); LEUKOCYTE ESTERASE, URINE AUTO TRACE (NEGATIVE); MUCUS, URINE SMALL (NEGATIVE); NITRITE, URINE AUTO NEGATIVE (NEGATIVE); PROTEIN, URINE AUTO NEGATIVE (NEGATIVE); RBC, URINE AUTO 0 /HPF (0-3); SPECIFIC GRAVITY URINE AUTO 1.016 (1.002-1.035); SQUAMOUS EPITHELIAL CELL UR AU 3 /HPF (0-6); UROBILINOGEN, URINE AUTO 0.2 mg/dL (0.0-2.0); WBC, URINE AUTO 4 /HPF (0-3)
== END ==
LOC: M LAB REF 21:18
PROVIDERS: ATTEND Physician Assistant Medical
DX: N39.0 Urinary tract infection, site not specified (principal)

== ENCOUNTER 2022-12-06 20:06 | Emergency (ER) | payer OTHER ==
[~2022-12-06] VITALS: Ht 167.6 cm; Wt 68.2 kg
[2022-12-06 20:07] VITALS: BP 127/66; TEMP 97.9; O2SAT 99
[2022-12-06] MEDS ORDERED: MESA1.2T (20:11)
[2022-12-06 21:09] LABS: APPEARANCE, URINE CLEAR (CLEAR); BACTERIA, URINE AUTO NEGATIVE (NEGATIVE); BILIRUBIN, URINE AUTO NEGATIVE (NEGATIVE); BLOOD, URINE BLOOD 1+ (NEGATIVE); COLOR, URINE YELLOW (YELLOW); GLUCOSE, URINE (UA) AUTO NEGATIVE (NEGATIVE); KETONE, URINE AUTO NEGATIVE (NEGATIVE); LEUKOCYTE ESTERASE, URINE AUTO 1+ (NEGATIVE); NITRITE, URINE AUTO NEGATIVE (NEGATIVE); PROTEIN, URINE AUTO NEGATIVE (NEGATIVE); RBC, URINE AUTO 1 /HPF (0-3); SPECIFIC GRAVITY URINE AUTO 1.009 (1.002-1.035); SQUAMOUS EPITHELIAL CELL UR AU 2 /HPF (0-6); UROBILINOGEN, URINE AUTO 0.2 mg/dL (0.0-2.0); WBC, URINE AUTO 8 /HPF (0-3)
[2022-12-06 22:45] LABS: GC DNA AMPLIFICATION NEGATIVE (NEGATIVE)
[2022-12-06 22:58] LABS: HIV 1&2 SCREEN NEGATIVE (NEGATIVE)
[2022-12-06 23:06] LABS: HEPATITIS C VIRUS ABY INDEX 0.03 INDEX (<0.8)
[2022-12-06 23:07] LABS: HEPATITIS B CORE ANTIBODY IGM NEGATIVE (NEGATIVE)
[2022-12-07] MEDS ORDERED: FLUCONAZOLE 50MG TABLET As Ordered ONE (01:16)
[2022-12-07] MEDS ORDERED: metroNIDAZOLE (FLAGYL) 500MG TABLET As Ordered ONE (01:16)
[2022-12-08] MEDS ORDERED: METR-265 PO (18:31)
== END 2022-12-07 01:29 | disposition home or self-care (01) ==
LOC: M ED 20:06
DX: N89.8 Other specified noninflammatory disorders of vagina (principal); Z88.1 Allergy status to other antibiotic agents; Z79.3 Long term (current) use of hormonal contraceptives; Z79.899 Other long term (current) drug therapy

== ENCOUNTER → 2023-01-19 | Outpatient (CLI) | payer OTHER ==
[~2023-01-19] MED LIST changes: +MESA1.2T; +METR-265 PO
[2023-01-19 17:26] LABS: BASO % 0.4 % (0.0-1.0); EOS # 0.4 10^3/uL (0.0-0.5); HEMATOCRIT 39.1 % (36.0-47.0); HEMOGLOBIN 12.5 g/dl (12.0-15.5); LYMPH # 2.7 10^3/uL (1.5-5.0); LYMPH % 34.7 % (24.0-44.0); MEAN CORPUSCULAR HEMOGLOBIN 28.2 pg (27.0-33.0); MEAN CORPUSCULAR VOLUME 88.3 fl (80.0-96.0); MONO # 0.8 10^3/uL (0.0-0.8); NEUTROPHILS # 3.8 10^3/uL (1.5-8.5); NEUTROPHILS % 49.6 % (36.0-66.0); PLATELET COUNT, AUTOMATED 290 10^3/uL (150-450); RED BLOOD COUNT 4.43 10^6/uL (4.00-5.40); WHITE BLOOD COUNT 7.7 10^3/uL (4.0-10.0)
[2023-01-19 17:39] LABS: IRON (FE) 13 UG/DL (50-170); PERCENT SATURATION 3.2 % (13.2-45.0); TOTAL IRON BINDING CAPACITY 401 UG/DL (250-425)
[2023-01-19 17:40] LABS: ALBUMIN 3.7 G/DL (3.2-5.2); ALKALINE PHOSPHATASE 59 U/L (46-116); ALT/SGPT 35 U/L (7.0-40); AST/SGOT 24 U/L (<34); BILIRUBIN,TOTAL 0.3 MG/DL (0.3-1.2); BLOOD UREA NITROGEN 11 MG/DL (9-23); CALCIUM LEVEL 8.8 MG/DL (8.5-10.1); CARBON DIOXIDE LEVEL 26 MMOL/L (20-31); CHLORIDE LEVEL 107 MMOL/L (98-107); CREATININE FOR GFR 0.68 MG/DL (0.55-1.30); GLOMERULAR FILTRATION RATE > 60.0 (>60); GLUCOSE, FASTING 76 MG/DL (60-100); POTASSIUM SERUM 4.1 MMOL/L (3.5-5.1); SODIUM LEVEL 141 MMOL/L (136-145); TOTAL PROTEIN 7.2 G/DL (5.7-8.2)
[2023-01-19 17:43] LABS: FERRITIN 18.1 NG/ML (7.3-270.7); RHEUMATOID FACTOR QUANT < 3.5 IU/ML (<14); THYROID STIMULATING HORMONE 0.939 uIU/ML (0.55-4.78)
[2023-01-19 17:44] LABS: FOLATE > 24.00 NG/ML (>5.4); TOTAL 25(OH) VITAMIN D 21.9 NG/ML (20.0-100.0)
[2023-01-19 17:45] LABS: FREE T4 0.99 NG/DL (0.89-1.76)
[2023-01-19 17:47] LABS: THYROID PEROXIDASE ANTIBODY < 28.0 U/ML (<60.0); VITAMIN B12 LEVEL 457 PG/ML (211-911)
== END ==
LOC: M WUC 12:54
PROVIDERS: ATTEND Physician Assistant
DX: R53.83 Other fatigue (principal); K51.911 Ulcerative colitis, unspecified with rectal bleeding; Z84.81 Family history of carrier of genetic disease

== ENCOUNTER → 2023-02-07 | Outpatient (REF) | payer OTHER | LOC: M LAB REF 17:00 | PROVIDERS: ATTEND Nurse Practitioner Adult Health | DX: R30.0 Dysuria (principal) ==

== ENCOUNTER → 2023-07-19 | Outpatient (REF) | payer OTHER | LOC: M LAB REF 10:40 | PROVIDERS: ATTEND Nurse Practitioner Family | DX: R30.0 Dysuria (principal) ==

== ENCOUNTER 2024-04-10 17:40 | Emergency (ER) | payer OTHER ==
[~2024-04-10] VITALS: Ht 167.6 cm; Wt 75.3 kg
[2024-04-10 21:26] LABS: BASO % 0.3 % (0.0-1.0); EOS # 0.8 10^3/uL (0.0-0.5); HEMATOCRIT 35.6 % (36.0-47.0); HEMOGLOBIN 11.8 g/dl (12.0-15.5); LYMPH # 3.6 10^3/uL (1.5-5.0); LYMPH % 27.4 % (24.0-44.0); MEAN CORPUSCULAR HEMOGLOBIN 27.6 pg (27.0-33.0); MEAN CORPUSCULAR HGB CONC 33.1 g/dl (32.0-36.5); MEAN CORPUSCULAR VOLUME 83.4 fl (80.0-96.0); MONO # 0.9 10^3/uL (0.0-0.8); NEUTROPHILS # 7.8 10^3/uL (1.5-8.5); PLATELET COUNT, AUTOMATED 276 10^3/uL (150-450); RED BLOOD COUNT 4.27 10^6/uL (4.00-5.40); WHITE BLOOD COUNT 13.3 10^3/uL (4.0-10.0)
[2024-04-10] MEDS: ACETAMINOPHEN 500 MG TAB PO ONE (21:27)
[2024-04-10 21:55] LABS: BLOOD UREA NITROGEN 12 MG/DL (9-23); CALCIUM LEVEL 9.2 MG/DL (8.5-10.1); CARBON DIOXIDE LEVEL 26 MMOL/L (20-31); CHLORIDE LEVEL 105 MMOL/L (98-107); CREATININE FOR GFR 0.67 MG/DL (0.55-1.30); GLOMERULAR FILTRATION RATE > 60.0 (>60); GLUCOSE, FASTING 84 MG/DL (60-100); POTASSIUM SERUM 3.9 MMOL/L (3.5-5.1); SODIUM LEVEL 140 MMOL/L (136-145)
[2024-04-10 22:55] VITALS: BP 98/56; TEMP 98.4; O2SAT 98
== END 2024-04-11 00:27 | disposition home or self-care (01) ==
LOC: M ED 17:40
DX: K52.9 Noninfective gastroenteritis and colitis, unspecified (principal); K50.90 Crohn's disease, unspecified, without complications; F41.9 Anxiety disorder, unspecified; F32.A Depression, unspecified; Z79.899 Other long term (current) drug therapy; Z88.0 Allergy status to penicillin

== ENCOUNTER → 2024-04-13 | Outpatient (REF) | payer OTHER | LOC: M LAB REF 14:40 | DX: K52.9 Noninfective gastroenteritis and colitis, unspecified (principal) ==

== ENCOUNTER → 2024-04-15 | Outpatient (CLI) | payer OTHER ==
[2024-04-15 17:56] LABS: BASO % 0.3 % (0.0-1.0); EOS % 0.4 % (0.0-3.0); HEMATOCRIT 35.7 % (36.0-47.0); HEMOGLOBIN 11.6 g/dl (12.0-15.5); LYMPH # 1.1 10^3/uL (1.5-5.0); LYMPH % 13.2 % (24.0-44.0); MEAN CORPUSCULAR HEMOGLOBIN 27.2 pg (27.0-33.0); MEAN CORPUSCULAR HGB CONC 32.5 g/dl (32.0-36.5); MEAN CORPUSCULAR VOLUME 83.6 fl (80.0-96.0); MONO # 0.1 10^3/uL (0.0-0.8); MONO % 1.6 % (2.0-8.0); NEUTROPHILS # 6.7 10^3/uL (1.5-8.5); NEUTROPHILS % 83.9 % (36.0-66.0); PLATELET COUNT, AUTOMATED 306 10^3/uL (150-450); RED BLOOD COUNT 4.27 10^6/uL (4.00-5.40); WHITE BLOOD COUNT 7.9 10^3/uL (4.0-10.0)
[2024-04-15 18:39] LABS: TOTAL IRON BINDING CAPACITY 339 UG/DL (250-425)
[2024-04-15 18:40] LABS: ALBUMIN 3.8 G/DL (3.2-5.2); ALKALINE PHOSPHATASE 65 U/L (35-104); ALT/SGPT 42 U/L (7.0-40); AST/SGOT 30 U/L (<34); BILIRUBIN,TOTAL 0.2 MG/DL (0.3-1.2); BLOOD UREA NITROGEN 13 MG/DL (9-23); CARBON DIOXIDE LEVEL 25 MMOL/L (20-31); CHLORIDE LEVEL 105 MMOL/L (98-107); CREATININE FOR GFR 0.59 MG/DL (0.55-1.30); GLOMERULAR FILTRATION RATE > 60.0 (>60); GLUCOSE, FASTING 114 MG/DL (60-100); IRON (FE) 45 UG/DL (50-170); PERCENT SATURATION 13.3 % (13.2-45.0); POTASSIUM SERUM 4.1 MMOL/L (3.5-5.1); SODIUM LEVEL 142 MMOL/L (136-145); TOTAL PROTEIN 7.5 G/DL (5.7-8.2)
[2024-04-15 18:41] LABS: FERRITIN 43.8 NG/ML (7.3-270.7); FREE T4 1.12 NG/DL (0.89-1.76); THYROID STIMULATING HORMONE 0.633 uIU/ML (0.55-4.78)
== END ==
LOC: M LAB 17:13
PROVIDERS: ATTEND Physician Assistant
DX: K50.119 Crohn's disease of large intestine with unspecified complications (principal)

== ENCOUNTER → 2024-04-29 | Outpatient (CLI) | payer OTHER | LOC: M RAD 11:36 | PROVIDERS: ATTEND Nurse Practitioner Adult Health | DX: D48.7 Neoplasm of uncertain behavior of other specified sites (principal) ==

== ENCOUNTER → 2024-07-03 | Outpatient (REF) | payer OTHER, MEDICAID ==
[2024-07-03 18:15] LABS: APPEARANCE, URINE HAZY (CLEAR); BACTERIA, URINE AUTO NEGATIVE (NEGATIVE); BILIRUBIN, URINE AUTO NEGATIVE (NEGATIVE); BLOOD, URINE BLOOD NEGATIVE (NEGATIVE); COLOR, URINE YELLOW (YELLOW); GLUCOSE, URINE (UA) AUTO NEGATIVE (NEGATIVE); KETONE, URINE AUTO NEGATIVE (NEGATIVE); LEUKOCYTE ESTERASE, URINE AUTO NEGATIVE (NEGATIVE); MUCUS, URINE SMALL (NEGATIVE); NITRITE, URINE AUTO NEGATIVE (NEGATIVE); PROTEIN, URINE AUTO NEGATIVE (NEGATIVE); RBC, URINE AUTO 2 /HPF (0-3); SPECIFIC GRAVITY URINE AUTO 1.025 (1.002-1.035); SQUAMOUS EPITHELIAL CELL UR AU 3 /HPF (0-6); WBC, URINE AUTO 2 /HPF (0-3)
== END ==
LOC: M LAB REF 17:19
PROVIDERS: ATTEND Physician Assistant
DX: N39.0 Urinary tract infection, site not specified (principal)